=== PATIENT | male | born 1975 | race African-American/Black ===

== ENCOUNTER 2020-02-02 19:41 | Emergency (ER) | payer OTHER ==
[~2020-02-02] VITALS: Ht 175.3 cm; Wt 99.8 kg
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
[2020-02-02 23:44] VITALS: BP 160/99
== END 2020-02-02 23:46 | disposition home or self-care (01) ==
LOC: ER 19:41
DX: R45.1 Restlessness and agitation (principal); F19.90 Other psychoactive substance use, unspecified, uncomplicated; R41.82 Altered mental status, unspecified